=== PATIENT | female | born 1950 | race Caucasian/White ===

== ENCOUNTER 2016-10-02 05:44 | Inpatient (IN) | payer MEDICARE, OTHER ==
[~2016-10-02 05:44] MED LIST: ASPIRIN EC81 MG PO; CALCIUM600 M1 PO; DAILY MULTIPLE1 EAC2 PO; ESTRACE0.5 M2 PO; FISH OIL 1,0001 CAP PO; FLAX SEED OIL1000 M1 PO; GLUCOSAMINE & C1 CAP PO; GLUCOSAMINE CH1 EA10 PO; HAIR SKIN NAIL PO; LISINOPRIL-HCT1 EAC3 PO; MAGNESIUM250 M3 PO; OMEGA PO; OMEPRAZOLE20 M4 PO; PREMARIN; TYLENOL ARTHRI650 M1 PO; VITAMIN D35000 UNI3 PO
[2016-10-03 06:58] LABS: BASO % 0.1 % (0-2); HCT-HEMATOCRIT 34.9 % (34.0-49.0); HGB-HEMOGLOBIN 11.1 gm/dl (12.0-15.5); IMMATURE GRANULOCYTES ABSOLUTE 0.02 tho/cmm (0-0.03); IMMATURE GRANULOCYTES PERCENT 0.2 % (0-0.3); LYMPH % 9.8 % (20-45); LYMPH ABSOLUTE COUNT 1.1 tho/cmm (0.8-4.5); MCH (MEAN CORPUSCULAR HGB) 29.4 pg (28.0-32.0); MCHC MEAN CORPUSCULAR HGB CONC 31.8 % (32.0-36.0); MCV (MEAN CELL VOLUME) 92.6 fl (82.0-96.0); MONO % 7.4 % (0-12); MONOCYTE ABSOLUTE COUNT 0.8 tho/cmm (0.0-1.2); NEUTROPHIL ABSOLUTE COUNT 8.9 tho/cmm (1.6-8.0); NEUTROPHIL-AUTOMATED 8.9 tho/cmm (1.6-8.0); NEUTROPHILS % 82.5 % (40-80); PLATELET COUNT 275 tho/cmm (150-450); RED BLOOD COUNT 3.77 mil/cmm (4.00-5.20); WHITE BLOOD COUNT 10.7 tho/cmm (4.0-10.0)
[2016-10-03 07:10] LABS: ANION GAP 12 mmol/L (0-20); BLOOD UREA NITROGEN 11 mg/dl (6-24); CALCIUM 8.2 mg/dl (8.5-10.5); CARBON DIOXIDE-VENOUS 29 mmol/L (22-32); CHLORIDE 101 mmol/l (96-110); CREATININE 1.08 mg/dl (0.50-1.10); GLUCOSE 151 mg/dL (70-110); POTASSIUM 3.9 mmol/L (3.7-5.1); SODIUM 138 mmol/L (135-145); eGFR VALUE FOR BLACK 62 mL/Min
[2016-10-05 06:51] LABS: BASO % 0.1 % (0-2); EOS % 0.2 % (0-7); IMMATURE GRANULOCYTES ABSOLUTE 0.02 tho/cmm (0-0.03); IMMATURE GRANULOCYTES PERCENT 0.2 % (0-0.3); LYMPH % 14.2 % (20-45); LYMPH ABSOLUTE COUNT 1.2 tho/cmm (0.8-4.5); MCV (MEAN CELL VOLUME) 93.1 fl (82.0-96.0); MEAN PLATELET VOLUME 9.1 cmc (9.4-12.4); MONO % 9.8 % (0-12); MONOCYTE ABSOLUTE COUNT 0.8 tho/cmm (0.0-1.2); NEUTROPHIL ABSOLUTE COUNT 6.3 tho/cmm (1.6-8.0); NEUTROPHIL-AUTOMATED 6.3 tho/cmm (1.6-8.0); NEUTROPHILS % 75.5 % (40-80); PLATELET COUNT 208 tho/cmm (150-450); RED BLOOD COUNT 2.75 mil/cmm (4.00-5.20); RED CELL DISTRIBUTION WIDTH 14.4 % (12.4-16.4); WHITE BLOOD COUNT 8.3 tho/cmm (4.0-10.0)
[2016-10-05 06:54] LABS: HCT-HEMATOCRIT 25.6 % (34.0-49.0); HGB-HEMOGLOBIN 8.1 gm/dl (12.0-15.5); MCH (MEAN CORPUSCULAR HGB) 29.4 pg (28.0-32.0); MCHC MEAN CORPUSCULAR HGB CONC 31.6 % (32.0-36.0)
[2016-10-05 06:58] LABS: ANION GAP 9 mmol/L (0-20); BLOOD UREA NITROGEN 11 mg/dl (6-24); CALCIUM 7.8 mg/dl (8.5-10.5); CARBON DIOXIDE-VENOUS 32 mmol/L (22-32); CHLORIDE 102 mmol/l (96-110); CREATININE 0.75 mg/dl (0.50-1.10); GLUCOSE 125 mg/dL (70-110); SODIUM 139 mmol/L (135-145); eGFR VALUE FOR BLACK >90 mL/Min
[2016-10-05 18:27] LABS: HCT-HEMATOCRIT 25.2 % (34.0-49.0); HGB-HEMOGLOBIN 8.1 gm/dl (12.0-15.5); MCV (MEAN CELL VOLUME) 92.6 fl (82.0-96.0); RED CELL DISTRIBUTION WIDTH 14.3 % (12.4-16.4)
[2016-10-06 17:31] LABS: HCT-HEMATOCRIT 28.1 % (34.0-49.0); MCV (MEAN CELL VOLUME) 91.2 fl (82.0-96.0)
[2016-10-06 17:46] LABS: CALCIUM 8.2 mg/dl (8.5-10.5); MAGNESIUM 1.9 mg/dl (1.3-2.6); POTASSIUM 3.7 mmol/L (3.7-5.1)
[2016-10-07 05:00] LABS: BASO % 0.3 % (0-2); EOS % 0.9 % (0-7); EOSINOPHIL ABSOLUTE COUNT 0.1 tho/cmm (0.0-0.7); HCT-HEMATOCRIT 28.7 % (34.0-49.0); HGB-HEMOGLOBIN 9.2 gm/dl (12.0-15.5); IMMATURE GRANULOCYTES ABSOLUTE 0.03 tho/cmm (0-0.03); IMMATURE GRANULOCYTES PERCENT 0.3 % (0-0.3); LYMPH % 12.9 % (20-45); LYMPH ABSOLUTE COUNT 1.4 tho/cmm (0.8-4.5); MCH (MEAN CORPUSCULAR HGB) 29.4 pg (28.0-32.0); MCHC MEAN CORPUSCULAR HGB CONC 32.1 % (32.0-36.0); MCV (MEAN CELL VOLUME) 91.7 fl (82.0-96.0); MEAN PLATELET VOLUME 9.1 cmc (9.4-12.4); MONOCYTE ABSOLUTE COUNT 1.1 tho/cmm (0.0-1.2); NEUTROPHIL ABSOLUTE COUNT 8.3 tho/cmm (1.6-8.0); NEUTROPHIL-AUTOMATED 8.3 tho/cmm (1.6-8.0); NEUTROPHILS % 75.6 % (40-80); PLATELET COUNT 258 tho/cmm (150-450); RED BLOOD COUNT 3.13 mil/cmm (4.00-5.20); WHITE BLOOD COUNT 10.9 tho/cmm (4.0-10.0)
[2016-10-07 05:13] LABS: ALB/GLOB RATIO 0.5 (0.8-2.0); ALBUMIN 1.9 g/dl (3.5-5.0); ALKALINE PHOSPHATASE 55 U/L (33-138); ALT/SGPT 20 U/L (12-78); ANION GAP 10 mmol/L (0-20); AST/SGOT 31 U/L (10-40); BILIRUBIN,TOTAL 0.5 mg/dl (0-1.5); BLOOD UREA NITROGEN 11 mg/dl (6-24); CALCIUM 8.3 mg/dl (8.5-10.5); CARBON DIOXIDE-VENOUS 28 mmol/L (22-32); CHLORIDE 101 mmol/l (96-110); CREATININE 0.58 mg/dl (0.50-1.10); GLUCOSE 104 mg/dL (70-110); POTASSIUM 3.4 mmol/L (3.7-5.1); SODIUM 136 mmol/L (135-145); eGFR VALUE FOR BLACK >90 mL/Min
[2016-10-08 05:20] LABS: BASO % 0.2 % (0-2); EOSINOPHIL ABSOLUTE COUNT 0.1 tho/cmm (0.0-0.7); HCT-HEMATOCRIT 28.6 % (34.0-49.0); HGB-HEMOGLOBIN 9.2 gm/dl (12.0-15.5); IMMATURE GRANULOCYTES ABSOLUTE 0.07 tho/cmm (0-0.03); IMMATURE GRANULOCYTES PERCENT 0.7 % (0-0.3); LYMPH % 11.3 % (20-45); LYMPH ABSOLUTE COUNT 1.2 tho/cmm (0.8-4.5); MCH (MEAN CORPUSCULAR HGB) 29.1 pg (28.0-32.0); MCHC MEAN CORPUSCULAR HGB CONC 32.2 % (32.0-36.0); MCV (MEAN CELL VOLUME) 90.5 fl (82.0-96.0); MEAN PLATELET VOLUME 8.8 cmc (9.4-12.4); MONO % 8.9 % (0-12); NEUTROPHIL ABSOLUTE COUNT 8.3 tho/cmm (1.6-8.0); NEUTROPHIL-AUTOMATED 8.3 tho/cmm (1.6-8.0); NEUTROPHILS % 77.9 % (40-80); PLATELET COUNT 300 tho/cmm (150-450); RED BLOOD COUNT 3.16 mil/cmm (4.00-5.20); RED CELL DISTRIBUTION WIDTH 14.5 % (12.4-16.4); WHITE BLOOD COUNT 10.7 tho/cmm (4.0-10.0)
[2016-10-08 05:56] LABS: ALB/GLOB RATIO 0.5 (0.8-2.0); ALBUMIN 1.9 g/dl (3.5-5.0); ALKALINE PHOSPHATASE 64 U/L (33-138); ALT/SGPT 19 U/L (12-78); ANION GAP 10 mmol/L (0-20); AST/SGOT 30 U/L (10-40); BILIRUBIN,TOTAL 0.6 mg/dl (0-1.5); BLOOD UREA NITROGEN 9 mg/dl (6-24); CALCIUM 8.2 mg/dl (8.5-10.5); CARBON DIOXIDE-VENOUS 30 mmol/L (22-32); CHLORIDE 103 mmol/l (96-110); CREATININE 0.51 mg/dl (0.50-1.10); GLUCOSE 101 mg/dL (70-110); SODIUM 140 mmol/L (135-145); eGFR VALUE FOR BLACK >90 mL/Min
[2016-10-08 06:05] LABS: POTASSIUM 2.9 mmol/L (3.7-5.1)
[2016-10-09] MEDS ORDERED: POTASSIUM CHLO20 ME3 PO (14:17)
[2016-10-09] MEDS ORDERED: NORCO 5-325 TA1 EACH PO (14:19)
[2016-10-09] MEDS ORDERED: ULTRAM50 M1 PO (17:20)
[2016-10-09] MEDS ORDERED: CYCLOBENZAPRINE5 M1 PO (17:34)
== END 2016-10-09 18:15 | DRG 453 ==
LOC: SHSB 05:44 → ORE 10:08 → PACU 16:55 → 5EB 18:10 → ORE 10-04 10:26 → PACU 10-04 17:38 → 5EB 10-04 18:50
PROVIDERS: Internal Medicine; Internal Medicine Cardiovascular Disease; Physician Assistant; ADMIT Orthopaedic Surgery
PROC: 0SG10A0 Fusion of 2 or more Lumbar Vertebral Joints with Interbody Fusion Device, Anterior Approach, Anterior Column, Open Approach (ICD-10-PCS; principal; 2016-10-02)
PROC: 0ST20ZZ Resection of Lumbar Vertebral Disc, Open Approach (ICD-10-PCS; 2016-10-02)
PROC: 0RG70K1 Fusion of 2 to 7 Thoracic Vertebral Joints with Nonautologous Tissue Substitute, Posterior Approach, Posterior Column, Open Approach (ICD-10-PCS; 2016-10-02)
PROC: 0SG30Z1 (ICD-10-PCS; 2016-10-04)
PROC: 0QB00ZZ Excision of Lumbar Vertebra, Open Approach (ICD-10-PCS; 2016-10-04)
PROC: 30233N1 Transfusion of Nonautologous Red Blood Cells into Peripheral Vein, Percutaneous Approach (ICD-10-PCS; 2016-10-05)
DX: M47.9 Spondylosis, unspecified (principal); J96.01 Acute respiratory failure with hypoxia; D62 Acute posthemorrhagic anemia; I10 Essential (primary) hypertension; M41.9 Scoliosis, unspecified; M48.06 Spinal stenosis, lumbar region; K21.9 Gastro-esophageal reflux disease without esophagitis; K59.00 Constipation, unspecified; R73.9 Hyperglycemia, unspecified; R19.7 Diarrhea, unspecified; Z85.41 Personal history of malignant neoplasm of cervix uteri; H91.90 Unspecified hearing loss, unspecified ear; Z87.891 Personal history of nicotine dependence; Z79.82 Long term (current) use of aspirin; E55.9 Vitamin D deficiency, unspecified; M40.205 Unspecified kyphosis, thoracolumbar region
CPT/HCPCS: C1713; C1769; J0690; J1650; J2250; J2270; J2405; J3010; J3370; J7030; J7040; P9016; Q9967